=== PATIENT | female | born 1975 | race Hispanic/Latino ===

== ENCOUNTER 2024-09-02 21:38 | Emergency (ER) | payer SELFPAY ==
[~2024-09-02] VITALS: Ht 162.6 cm; Wt 122.5 kg
--- NOTE | 2024-09-02 22:01 | ERN ---
General Chief Complaint: Multiple Complaints Stated Complaint: MULTIPLE COMPLAINTS Time Seen by MD: 21:43 Source: patient History of Present Illness Initial Comments Patient is a 49-year-old female coming in to be evaluated for multiple complaints. Patient states that on August 30 while carrying a hand of the my list some of the vapor went into her nose and she states she felt very anxious afterwards. These anxiety led her to feel with a headache and chest pressure. She states he has been ongoing since then. She also states that she had had a the evaluation in [place] and was given medications for elevated blood pressure. She started taking them two days ago but states she still feels very anxious. Allergies: Coded Allergies: No Known Allergies (Unverified Allergy, Unknown, 09/02/24) Past Medical History Past Medical History: Hypertension Past Surgical History: None ROS Dictation CONSTITUTIONAL: No chills, no fever, no weakness, no diaphoresis, no malaise. HEAD/FACE: No signs of trauma. EENT: No eye pain, no blurred vision, no tearing, no double vision, no ear pain, no ear discharge, no nose pain, no nasal congestion, no throat pain, no th roat swelling, no mouth pain. RESPIRATORY: No cough, no orthopnea, no SOB, no stridor, no wheezing. CARDIOVASCULAR: No chest pain, no edema, no palpitations, no syncope. GASTROINTESTINAL/ABDOMINAL: No abdominal pain, no constipation, no diarrhea, no nausea, no vomiting. GENITOURINARY: No abnormal discharge, no dysuria, no frequent urination, no hematuria. No complaints of pain in the genitals. MUSCULOSKELETAL: No back pain, no gout, no joint pain, no joint swelling, no muscle pain, no muscle stiffness, no neck pain. INTEGUMENTARY: No change in color, no change in hair/nails, no dryness, no lesion, no lumps, no rash. NEUROLOGICAL/PSYCH: No anxiety, not depressed, no emotional problem, no headache, no numbness, no pre-existing deficit, no history of seizures, no tremors, no weakness. HEMATOLOGIC/LYMPHATIC: Not anemic, no history of blood clots, no apparent bleeding, no bruising, glands not swollen. All Systems Negative, Except as Noted. Physical Exam Physical Exam Dictation VITAL SIGNS: Reviewed. GENERAL APPEARANCE: Alert, oriented x3, no acute distress, obese. HEAD AND FACE: Non-traumatic. EYES: PERRL, pink conjunctivas, eyelid no trauma, anterior chamber clear. EARS: Pinnas intact and no signs of trauma or erythema. Ear canals clear and no discharge. TMs no erythema. NOSE: No discharge, no bleeding. OROPHARYNX: Mouth normal, teeth no caries, tongue pink. Pharynx clear, no erythema. Tonsils no exudates, no abscesses noted. Mucous membrane moist. NECK: Supple, non-tender, no thyromegaly, no masses, no JVD, no bruits. BREAST: Deferred. CHEST: No tenderness, no crepitus, no paradoxical movement, no retractions. LUNGS: Clear, well-ventilated, symmetric, no rales, no wheezing, no rhonchi, no stridor, good breath sounds bilaterally. HEART: Regular rate, regular rhythm, no murmur, no gallops. VASCULAR: No peripheral edema. ABDOMEN: Soft, positive bowel sounds, nondistended, no guarding, nontender, no rebound, no masses no hepatomegaly, no splenomegaly, no Sinclair's sign, no hernias. RECTAL: Deferred. GENITAL: Deferred. NEUROLOGICAL: Normal speech, gross motor function intact, gross sensory function intact. MUSCULOSKELETAL: Neck nontender, full range of motion, back nontender, full range of motion. EXTREMITIES: Nontender, full range of motion. SKIN: Color pink, dry, no turgor, no rash, no lacerations, no abrasions, no contusions. LYMPHATICS: Deferred. Results Laboratory and Microbiology Lab and Micro Result Laboratory Tests Test 09/02/24 21:58 09/02/24 22:05 09/03/24 01:15 White Blood Count 11.0 K/uL (4.8-10.8) H Red Blood Count 4.82 MIL/uL (4.00-5.50) Hemoglobin 12.6 g/dL (12.0-16.0) Hematocrit 39.2 % (36-48) Mean Corpuscular Volume 81.3 fL (79-99) Mean Corpuscular Hemoglobin 26.1 pg (27.0-33.0) L Mean Corpuscular Hemoglobin Concent 32.1 g/dL (32.0-36.0) Red Cell Distribution Width 15.4 % (11.0-15.5) Platelet Count 335 K/uL (130-400) Mean Platelet Volume 10.2 fL (7.5-10.5) Immature Granulocyte % (Auto) 0.5 % (0-1) Neutrophils (%) (Auto) 65.4 % (40.0-77.0) Lymphocytes (%) (Auto) 26.9 % (21.0-51.0) Monocytes (%) (Auto) 5.4 % (3.0-13.0) Eosinophils (%) (Auto) 1.3 % (0.0-8.0) Basophils (%) (Auto) 0.5 % (0.0-5.0) Neutrophils # (Auto) 7.2 K/uL (1.8-7.7) Lymphocytes # (Auto) 3.0 K/uL (1.0-4.8) Monocytes # (Auto) 0.6 K/uL (0.1-1.0) Eosinophils # (Auto) 0.14 K/uL (0.00-0.70) Basophils # (Auto) 0.06 K/uL (0.00-0.20) Absolute Immature Granulocyte (auto 0.06 K/uL (0-1) Nucleated Red Blood Cells 0.0 % (0.0-0.19) Prothrombin Time 10.2 SEC (9.6-11.6) Prothromb Time International Ratio <= 0.93 (0.85-1.15) Activated Partial Thromboplast Time 27.0 SEC (26.3-35.5) Sodium Level 141 mmol/L (136-145) Potassium Level 4.2 mmol/L (3.5-5.1) Chloride Level 104 mmol/L (101-111) Carbon Dioxide Level 30 mmol/L (21-32) Blood Urea Nitrogen 16 mg/dL (7-18) Creatinine 1.2 mg/dL (0.5-1.0) H Glomerular Filtration Rate Calc 55 mL/min (>90) Random Glucose 127 mg/dL (70-105) H Total Calcium 8.5 mg/dL (8.5-10.1) Magnesium Level 1.80 mg/dL (1.80-2.40) Total Creatine Kinase 46 U/L (21-232) Troponin I High Sensitivity 5 ng/L (4-50) B-Type Natriuretic Peptide 42 pg/mL (0-100) Urine Color COLORLESS (YELLOW) Urine Appearance CLEAR (CLEAR) Urine pH 5.5 (5.0-8.0) Urine Specific Barry 1.012 (1.001-1.031) Urine Protein NEGATIVE mg/dL (NEGATIVE) Urine Glucose (UA) NEGATIVE mg/dL (NEGATIVE) Urine Ketones NEGATIVE mg/dL (NEGATIVE) Urine Occult Blood NEGATIVE (NEGATIVE) Urine Nitrate NEGATIVE (NEGATIVE) Urine Bilirubin NEGATIVE mg/dL (NEGATIVE) Urine Urobilinogen 0.2 mg/dL (0.2-1.0) Urine Leukocyte Esterase NEGATIVE Malvin/uL Influenza Type A Antigen Negative For Type A Influenza Type B Antigen Negative For Type B SARS-CoV-2, RNA, NAAT NEGATIVE SARS CoV-2 Group A Streptococcus Rapid negative (NEGATIVE) Labs Reviewed?: Yes EKG/XRAY/US/CT/MRI X-RAY Comment CHEST XRAY- PERIBRONCHIAL CONGESTION MDM MDM: Differential diagnosis: ANXIETY, DEHYDRATION,URI PATIENT IS A 49-YEAR-OLD FEMALE COMING IN TO BE EVALUATED FOR MULTIPLE COMPLAINTS. PATIENT STATES THAT SHE HAS BEEN HAVING MILD FACIAL PRESSURE EARACHES SORE THROAT AND LOWER ABDOMINAL DISCOMFORT. LABORATORY WORKUP NEGATIVE FOR ACUTE FINDINGS. ED Course Orders Procedure Category Date Status Time Cbc With Differential LAB 09/02/24 Complete 21:48 Prothrombin Time With LAB 09/02/24 Complete INR 21:48 B-Type Natriuretic LAB 09/02/24 Complete Peptide 21:48 Chest 1vw RAD 09/02/24 Taken 21:48 12 Lead Ekg Tracing- EKG 09/02/24 Logged Technical 21:48 Magnesium LAB 09/02/24 Complete 21:48 Creatine Kinase, Total LAB 09/02/24 Complete 21:48 Troponin I High LAB 09/02/24 Complete Sensitivity 21:48 Urinalysis Profile LAB 09/02/24 Complete 21:48 Partial LAB 09/02/24 Complete Thromboplastin Time 21:48 Basic Metabolic Panel LAB 09/02/24 Complete 21:48 Pantoprazole 40mg Inj PHA 09/02/24 Complete (Protonix 40mg Inj 22:00 0.9%Nacl 1000ml (Ns PHA 09/02/24 Complete 1000ml) 22:00 Covid Rna Naat LAB 09/03/24 Complete 00:35 Rapid (Group A Strep) LAB 09/03/24 Complete 00:35 Influenza Type A & B, LAB 09/03/24 Complete Rapid 00:35 Clonidine Hcl 0.2 Mg PHA 09/03/24 Complete Tablet (Catapres 0. 02:00 Current Medications Medications (Trade) Dose Ordered Sig/Duke Route PRN Reason Start Time Stop Time Status Last Admin Dose Admin Clonidine HCl (CATApres 0.2 MG TAB) 0.2 mg ONCE ONCE PO 09/03/24 02:00 09/03/24 02:01 DC 09/03/24 02:08 Pantoprazole Sodium (PROTonix 40MG INJ) 40 mg ONCE ONCE IVP 09/02/24 22:00 09/02/24 22:01 DC 09/03/24 01:20 Sodium Chloride 1,000 ml @ 0 mls/hr ONCE ONCE IV 09/02/24 22:00 09/02/24 22:01 DC 09/03/24 01:19 Vital Signs Date Time Temp Pulse Resp B/P (MAP) Pulse Ox O2 Delivery O2 Flow Rate FiO2 09/03/24 02:46 78 18 174/59 99 Room Air* 0 21 09/03/24 02:08 70 202/88 09/03/24 02:07 202/88 100 Room Air* 0 09/03/24 01:57 69 18 180/69 100 Room Air* 0 21 09/03/24 01:16 98.2 67 18 229/103 100 Room Air* 0 21 09/02/24 21:39 98.1 80 16 194/103 100 Room Air DX & DISP Disposition: Discharge Departure Impression: Primary Impression: URI (upper respiratory infection) Additional Impression: Dehydration Condition: Stable Scripts Azithromycin (Azithromycin) 500 Mg Tablet 1 TAB PO DAILY for 5 Days, #5 TAB 0 Refills Prov: MICHAEL ANTOINE MD 09/03/24 Methylprednisolone (Medrol) 8 Mg Tablet 1 TAB PO BID for 5 Days, #10 TAB 0 Refills Prov: MICHAEL ANTOINE MD 09/03/24 Pantoprazole Sodium (Protonix) 40 Mg Ectab 1 TAB PO DAILY for 30 Days, #30 TAB 0 Refills Prov: MICHAEL ANTOINE MD 09/03/24 Fluticasone Propionate (Flonase Nasal Rafael Gonzalez) 50 Mcg/Actuation Rafael Gonzalez 2 SPRAY NS DAILY, #16 GM 0 Refills Prov: MICHAEL ANTOINE MD 09/03/24 Additional Instructions: FOLLOW-UP WITH PRIMARY CARE PROVIDER IN 1 TO 2 DAYS. TAKE MEDICATIONS DIRECTED HERE IN THE EMERGENCY ROOM. OKAY TO CONTINUE HOME MEDICATIONS UNLESS OTHERWISE DISCUSSED DURING YOUR VISIT IN THE EMERGENCY ROOM TODAY. RETURN TO YOUR NEAREST EMERGENCY ROOM IF SYMPTOMS WORSEN OR IF THERE IS NO IMPROVEMENT. CALL 911 IF YOU NEED IMMEDIATE ASSISTANCE. TAKE TYLENOL [id number] NEEDED AND IF NO CONTRAINDICATIONS ARE PRESENT. INCREASE ORAL HYDRATION. A WOUND CULTURE OR URINE CULTURE WAS ORDERED HERE IN THE EMERGENCY ROOM DEPARTMENT PLEASE FOLLOW-UP WITH PRIMARY CARE PROVIDER AND ADVISE THEM TO GET REPEAT PORTS FROM OUR FACILITY. IF YOU HAD ANY BEATRICE WRAP/SPLINTS THAT WERE APPLIED HERE, PLEASE DO NOT REMOVE THEM UNTIL YOU SEE YOUR PRIMARY CARE OR SPECIALTY. REFERRALS: Referrals: SELF,REFERRAL (PCP) LJ HERNANDEZ MD Time of Disposition: 02:53 MICHAEL ANTOINE MD Sep 02, 2024 22:01
[2024-09-02 22:06] LABS: BASOPHILS # (AUTO) 0.06 K/uL (0.00-0.20); BASOPHILS % (AUTO) 0.5 % (0.0-5.0); EOSINOPHILS # (AUTO) 0.14 K/uL (0.00-0.70); EOSINOPHILS % (AUTO) 1.3 % (0.0-8.0); HEMATOCRIT 39.2 % (36-48); IMMATURE GRANULOCYTE ABSOLUTE 0.06 K/uL (0-1); LYMPHOCYTES % (AUTO) 26.9 % (21.0-51.0); MEAN CORPUSCULAR HEMOGLOBIN 26.1 pg (27.0-33.0); MEAN CORPUSCULAR HGB CONC 32.1 g/dL (32.0-36.0); MEAN CORPUSCULAR VOLUME 81.3 fL (79-99); MONOCYTES # (AUTO) 0.6 K/uL (0.1-1.0); MONOCYTES % (AUTO) 5.4 % (3.0-13.0); NEUTROPHILS # (AUTO) 7.2 K/uL (1.8-7.7); NEUTROPHILS % (AUTO) 65.4 % (40.0-77.0); PLATELET COUNT (AUTO) 335 K/uL (130-400); RED BLOOD CELL COUNT(AUTO) 4.82 MIL/uL (4.00-5.50); RED CELL DISTRIBUTION WIDTH 15.4 % (11.0-15.5)
[2024-09-02 22:17] LABS: CREATININE 1.2 mg/dL (0.5-1.0); POTASSIUM 4.2 mmol/L (3.5-5.1)
[2024-09-02 22:17] LABS: APPEARANCE,URINE CLEAR (CLEAR); BILIRUBIN,URINE NEGATIVE (NEGATIVE); COLOR,URINE COLORLESS (YELLOW); GLUCOSE, URINE (UA) NEGATIVE (NEGATIVE); KETONES,URINE NEGATIVE (NEGATIVE); LEUKOCYTE ESTERASE ,URINE NEGATIVE Leu/uL (NEGATIVE); NITRATE,URINE NEGATIVE (NEGATIVE); OCCULT BLOOD,URINE NEGATIVE (NEGATIVE); PH,URINE 5.5 (5.0-8.0); PROTEIN,URINE NEGATIVE (NEGATIVE); UROBILINOGEN,URINE 0.2 mg/dL (0.2-1.0)
[2024-09-02 22:18] LABS: INR <= 0.93 (0.85-1.15); PROTHROMBIN TIME 10.2 SEC (9.6-11.6)
[2024-09-02 22:22] LABS: MAGNESIUM 1.8 mg/dL (1.80-2.40)
[2024-09-02 22:23] LABS: ADD UA MICROSCOPIC NO
[2024-09-02 22:35] LABS: B-TYPE NATRIURETIC PEPTIDE 42 pg/mL (0-100)
--- NOTE | 2024-09-03 00:58 | NUR ---
ASSUMED PT CARE AT THIS TIME
[2024-09-03] MEDS: 0.9%NACL 1000ML 1,000 ML IV ONE (01:19)
[2024-09-03] MEDS: PANTOPrazole 40 MG/VIAL IVP ONE (01:20)
[2024-09-03 01:52] LABS: SARS-CoV-2, RNA, NAAT NEGATIVE SARS CoV-2 (NEGATIVE)
[2024-09-03 01:54] LABS: INFLUENZA TYPE A Negative For Type A (NEGATIVE); INFLUENZA TYPE B Negative For Type B (NEGATIVE)
[2024-09-03 01:55] LABS: RAPID GROUP A STREP negative (NEGATIVE)
[2024-09-03] MEDS: cloNIDine HCL 0.2 MG TABLET PO ONE (02:08)
[2024-09-03] MEDS ORDERED: PANT40TA55 PO (02:54)
[2024-09-03] MEDS ORDERED: FLUT16H NS (02:54)
[2024-09-03] MEDS ORDERED: METH8TAB PO (02:54)
[2024-09-03] MEDS ORDERED: AZIT500T4 PO (02:54)
[2024-09-03 03:17] VITALS: BP 132/68; PULSE 76; RESP 18; TEMP 98; O2SAT 100
--- NOTE | 2024-09-03 08:25 | HMCIMG ---
PORTABLE CHEST RADIOGRAPH INDICATION: cp COMPARISON: None FINDINGS: Heart size is normal. The pulmonary vascularity and zaheer appear normal. No abnormal pulmonary parenchymal opacity or consolidation identified. No significant pleural effusion noted. No pneumothorax detected. IMPRESSION: No radiographic evidence for any acute cardiopulmonary process.
--- NOTE | 2024-09-03 16:21 | EKG ---
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
== END 2024-09-03 03:19 | disposition home or self-care (01) ==
LOC: EDH 21:38
DX: J06.9 Acute upper respiratory infection, unspecified (principal); E86.0 Dehydration; F41.9 Anxiety disorder, unspecified; I10 Essential (primary) hypertension; Z20.822 Contact with and (suspected) exposure to COVID-19
CPT/HCPCS: 99285; 71045; 87635; 82550; 83735; 84484; 80048; 83880; 85025; 85610; 85730; 87880; 87804 ×2; 81003; 36415; 93005; 96374; 96361; J7030; J2470